=== PATIENT | male | born 1995 | race Two or more races ===

== ENCOUNTER 2024-03-04 20:46 | Emergency (ER) | payer MEDICAID, OTHER ==
[~2024-03-04] VITALS: Ht 175.3 cm; Wt 96.0 kg
[2024-03-04] MEDS: ONDANSETRON ODT 4 MG TAB PO ONE (22:42)
[2024-03-04] MEDS: KETOROLAC TROMETH 60MG/2ML VIAL IM ONE (23:03)
[2024-03-05 01:45] VITALS: BP 137/74; PULSE 76; RESP 16; TEMP 98.6; O2SAT 98
== END 2024-03-05 02:15 | disposition home or self-care (01) ==
LOC: ER 20:46
DX: S01.412A Laceration without foreign body of left cheek and temporomandibular area, initial encounter (principal); Z91.018 Allergy to other foods; V98.8XXA Other specified transport accidents, initial encounter; Y93.89 Activity, other specified; Y92.89 Other specified places as the place of occurrence of the external cause; Y99.8 Other external cause status
CPT/HCPCS: 12011; 70450; 70486; 72125; 96372; 99285; J1885; Q0162